=== PATIENT | male | born 1960 | race Caucasian/White ===

== ENCOUNTER 2021-03-08 08:00 | Inpatient (IN) | payer OTHER ==
[2021-04-14 14:46] VITALS: BMI 31.9
[2021-04-19] MEDS ORDERED: THROMBIN (BOVINE) 20,000 UNIT VIAL TP ONE (13:14)
[2021-04-19] MEDS ORDERED: LIDOCAINE 1%/EPI 1:100000 (20 ML MULTI DOSE VIAL) ONE (13:14)
[2021-04-19] MEDS ORDERED: VANCOMYCIN 1,000 MG VIAL (RESTRICTED TO ID ONLY) ONE (13:14)
[2021-04-19] MEDS ORDERED: BUPIVACAINE HCL/PF 0.5% (5MG/ML) 10 ML VIAL ONE (13:14)
[2021-04-19] MEDS ORDERED: GENTAMICIN SO4 80 MG/2 ML VIAL ONE (13:14)
[2021-04-19] MEDS ORDERED: BUPIVACAINE LIPOSOME/PF (EXPAREL) 266 MG/20 ML VIAL ONE (13:57)
[2021-04-19] MEDS ORDERED: MIDAZOLAM HCL 2 MG/2 ML SINGLE DOSE VIAL ONE (13:58)
[2021-04-19] MEDS ORDERED: MORPHINE 5 MG/10 ML AMP - FOR COMPOUNDING USE ONLY ONE (13:58)
[2021-04-19] MEDS ORDERED: LIDOCAINE 1%/EPI 1:100000 (20 ML MULTI DOSE VIAL) IJ ONE ×2 (14:09→14:35)
[2021-04-19] MEDS ORDERED: ceFAZolin 2 GRAM PREMIX BAG IVPB ONE ×2 (14:10→14:45)
[2021-04-19] MEDS ORDERED: THROMBIN (BOVINE) 5,000 UNIT VIAL TP ONE ×2 (14:11→15:10)
[2021-04-19] MEDS ORDERED: TRANEXAMIC ACID 1000 MG/10 ML VIAL IVPB ONE ×2 (14:11→14:45)
[2021-04-19] MEDS ORDERED: VANCOMYCIN 1 GM in D5W (PRE-DOCKED) 1,000 MG/250 ML IVPB ONE ×3 (14:11→16:50)
[2021-04-19] MEDS ORDERED: GENTAMICIN 80MG PREMIX BAG IVPB ONE ×2 (14:12→15:15)
[2021-04-19] MEDS ORDERED: HYDROGEN PEROXIDE 473 ML PO ONE ×2 (14:12→15:22)
[2021-04-19] MEDS ORDERED: BUPIVACAINE LIPOSOME/PF (EXPAREL) 266 MG/20 ML VIAL NR ONE ×2 (14:13→17:00)
[2021-04-19] MEDS ORDERED: BUPIVACAINE HCL/PF 0.5% (5MG/ML) 10 ML VIAL IJ ONE ×2 (14:13→17:00)
[2021-04-19] MEDS ORDERED: ONDANSETRON 4 MG/2 ML VIAL ONE (15:04)
[2021-04-19] MEDS ORDERED: TRANEXAMIC ACID 1000 MG/10 ML VIAL ONE (15:04)
[2021-04-19] MEDS ORDERED: ROCURONIUM BROMIDE 50 MG/5 ML SYRINGE ONE (15:04)
[2021-04-19] MEDS ORDERED: NEOSTIGMINE METHYLSULFATE 0.5 MG/1 ML - 10 ML MDV ONE (17:27)
[2021-04-19] MEDS ORDERED: GLYCOPYRROLATE 0.2 MG/1 ML VIAL ONE (17:28)
[2021-04-19] MEDS ORDERED: diazePAM CARPU-JECT 10 MG/2 ML DISP.SYRIN IVPUSH PRN (17:43)
[2021-04-19] MEDS ORDERED: oxyCODONE HCL 5 MG TABLET PO PRN ×2 (17:43)
[2021-04-19] MEDS ORDERED: HYDROmorphone HCl 2 MG/ML VIAL SQ PRN (17:43)
[2021-04-19] MEDS ORDERED: ONDANSETRON 4 MG/2 ML VIAL IVPUSH PRN ×2 (17:43→18:02)
[2021-04-19] MEDS ORDERED: ACETAMINOPHEN 1000 MG/100 ML BAG IVPB PRN (17:43)
[2021-04-19] MEDS ORDERED: LACTATED RINGERS SOLUTION 1,000 ML IV SCH ×2 (17:45→18:15)
[2021-04-19] MEDS: CEFAZOLIN 2 GM in SODIUM CHLORIDE 100 ML IVPB SCH (21:01)
[2021-04-20] MEDS: CEFAZOLIN 2 GM in SODIUM CHLORIDE 100 ML IVPB SCH ×2 (03:04→11:30)
[2021-04-20] MEDS ORDERED: glipiZIDE 10 MG TABLET (FP) PO SCH (07:00)
[2021-04-20 08:20] LABS: HEMATOCRIT 42.2 % (35.4-49); HEMOGLOBIN 13.7 GM/dL (11.7-16.9); MCHC 32.6 g/dl (32.0-35.9); MEAN CELL VOLUME 88.9 fl (80-96); MEAN PLT VOLUME 10.4 fl (7.5-11.1); PLATELET COUNT 134 10^3/uL (134-434); RBC 4.74 M/mm3 (4.00-5.60); RDW 13.7 % (11.9-15.9); WHITE BLOOD COUNT 10.2 K/mm3 (4.0-10.0)
[2021-04-20 08:45] LABS: CALCIUM 8.5 mg/dL (8.5-10.1)
[2021-04-20 08:49] LABS: CREATININE 1.4 mg/dL (0.55-1.3)
[2021-04-20] MEDS ORDERED: LISINOPRIL 20 MG TABLET PO SCH (10:00)
[2021-04-20] MEDS ORDERED: PATIENT'S OWN MEDICATION (NON-FORMULARY) (Amlodipine Besylate/Benazepril [Amlodipine-Benaz PO SCH (10:00)
[2021-04-20] MEDS ORDERED: FENOFIBRIC ACID 135 MG CAP PO SCH (10:00)
[2021-04-20] MEDS ORDERED: PATIENT'S OWN MEDICATION (NON-FORMULARY) (Dapagliflozin Propanediol [Farxiga] 5 MG Tablet) PO SCH (10:00)
[2021-04-20] MEDS ORDERED: amLODIPine BESYLATE 5 MG TABLET (FP) PO SCH (10:00)
[2021-04-20 14:29] VITALS: BP 116/64; PULSE 104; TEMP 98.2
== END 2021-04-20 16:11 | disposition home or self-care (01) | DRG 304 ==
LOC: J2C 04-19 04:18 → J4W 04-19 19:47
PROVIDERS: ADMIT Neurological Surgery
PROC: 01NB0ZZ Release Lumbar Nerve, Open Approach (ICD-10-PCS; 2021-04-19)
PROC: 4A11X4G Monitoring of Peripheral Nervous Electrical Activity, Intraoperative, External Approach (ICD-10-PCS; 2021-04-19)
PROC: 0SB20ZZ Excision of Lumbar Vertebral Disc, Open Approach (ICD-10-PCS; 2021-04-19)
PROC: 0SG0071 Fusion of Lumbar Vertebral Joint with Autologous Tissue Substitute, Posterior Approach, Posterior Column, Open Approach (ICD-10-PCS; 2021-04-19)
PROC: 0SG00AJ Fusion of Lumbar Vertebral Joint with Interbody Fusion Device, Posterior Approach, Anterior Column, Open Approach (ICD-10-PCS; principal; 2021-04-19 11:00)
DX: M51.26 Other intervertebral disc displacement, lumbar region (principal); M47.896 Other spondylosis, lumbar region; M48.062 Spinal stenosis, lumbar region with neurogenic claudication; M54.16 Radiculopathy, lumbar region; E11.9 Type 2 diabetes mellitus without complications; E78.5 Hyperlipidemia, unspecified; I10 Essential (primary) hypertension
CPT/HCPCS: 36415; 72131-TC; 76000-TC-FY; 80048; 82962; 85027; 86850; 86900; 86901; 94760; 97116-GP; 97161-GP

== ENCOUNTER 2023-04-09 14:03 | Emergency (ER) | payer BC, OTHER ==
[2023-04-09 14:15] VITALS: BP 115/78; PULSE 76; RESP 18; TEMP 97.3; BMI 29.6
[2023-04-09 16:05] LABS: BASO % 0.9 % (0-2.0); HEMATOCRIT 45.4 % (35.4-49); LYMPH % 21.3 % (8-40); MCH 28.9 pg (25.7-33.7); MEAN CELL VOLUME 87.5 fl (80-96); MEAN PLT VOLUME 9.9 fl (7.5-11.1); MONO % 9.5 % (3.8-10.2); NEUT % 67.3 % (42.8-82.8); PLATELET COUNT 202 10^3/uL (134-434); RBC 5.19 M/mm3 (4.00-5.60); RDW 13.3 % (11.9-15.9); WHITE BLOOD COUNT 8.1 K/mm3 (4.0-10.0)
[2023-04-09 16:17] LABS: INR 1.05 (0.83-1.09); PROTHROMBIN TIME (PATIENT) 12.2 SEC (9.7-13.0)
[2023-04-09 16:20] LABS: ACTIVATED PTT 26.8 SECONDS (25.2-36.5); VENOUS BASE EXCESS -2.8 mmol/L (-2-2); VENOUS O2 SATURATION 67.6 % (70-80); VENOUS PCO2 41.7 mmHg (38-52); VENOUS PH 7.353 (7.310-7.410)
[2023-04-09 16:25] LABS: POTASSIUM 5.3 mmol/L (3.5-5.1)
[2023-04-09 16:27] LABS: BLOOD UREA NITROGEN 19.8 mg/dL (7-18)
[2023-04-09 16:30] LABS: CREATININE 1.2 mg/dL (0.55-1.3)
[2023-04-09 16:32] LABS: BILIRUBIN,TOTAL 0.5 mg/dL (0.2-1); TOT PROT 7.4 g/dl (6.4-8.2)
[2023-04-09] MEDS ORDERED: SODIUM CHLORIDE 1,000 ML IV STA (17:31)
[2023-04-09 19:18] LABS: POTASSIUM 4.1 mmol/L (3.5-5.1)
[2023-04-09 19:20] LABS: CALCIUM 9.7 mg/dL (8.5-10.1)
[2023-04-09 19:21] LABS: ALBUMIN 3.9 g/dl (3.4-5.0); BLOOD UREA NITROGEN 18.6 mg/dL (7-18)
[2023-04-09 19:24] LABS: CREATININE 1.2 mg/dL (0.55-1.3)
[2023-04-09 19:25] LABS: BILIRUBIN,TOTAL 0.5 mg/dL (0.2-1)
[2023-04-09 19:26] LABS: TOT PROT 7.3 g/dl (6.4-8.2)
== END 2023-04-09 20:32 | disposition home or self-care (01) ==
LOC: JER 14:03
PROC: 3E0337Z Introduction of Electrolytic and Water Balance Substance into Peripheral Vein, Percutaneous Approach (ICD-10-PCS; principal; 2023-04-09)
DX: R20.0 Anesthesia of skin (principal); R55 Syncope and collapse; R42 Dizziness and giddiness; U07.1 COVID-19; R20.2 Paresthesia of skin; H53.8 Other visual disturbances
CPT/HCPCS: 0241U-QW; 36415; 70450-TC; 71046-TC-FY; 80053; 82010; 82803; 83735; 84484; 85025; 85610; 85730; 86850; 86900; 86901; 93005; 93010; 93308; 99285-25